=== PATIENT | male | born 1985 | race African-American/Black ===

== ENCOUNTER 2020-09-30 10:12 | Emergency (ER) | payer OTHER ==
[~2020-09-30] VITALS: Ht 162.6 cm; Wt 90.7 kg
[2020-09-30 10:12] VITALS: TEMP 100.7
[2020-09-30 12:52] VITALS: BP 129/71
== END 2020-09-30 12:52 | disposition home or self-care (01) ==
LOC: ED 10:12
DX: U07.1 COVID-19 (principal); J12.82 Pneumonia due to coronavirus disease 2019
CPT/HCPCS: 96372; 99283; J2930